=== PATIENT | female | born 1970 ===

== ENCOUNTER 2016-10-19 20:35 | Emergency (ER) | payer MEDICAID ==
[2016-10-19 20:45] VITALS: TEMP 98.2; O2SAT 99
[2016-10-19] MEDS ORDERED: Sodium Chloride 0.9% 1,000 ML IV ONE (21:14)
[2016-10-19] MEDS ORDERED: DiphenhydrAMINE 50 mg/ml Inj IVP STA (21:15)
[2016-10-19] MEDS ORDERED: DiphenhydrAMINE 50 mg/ml Inj ONE (21:28)
[2016-10-19 21:32] LABS: BASO # 0.1 K/uL (0.0-0.2); BASO % 0.5 % (0.0-2.0); EOS # 0.7 K/uL (0.0-0.7); EOS % 6.9 % (0.0-4.0); HEMATOCRIT 37.9 % (34.0-47.0); LYMPH # 3.8 K/uL (1.0-4.3); LYMPH % 39.4 % (20.0-40.0); MEAN CELL VOLUME 81.3 fL (81.0-99.0); MEAN CORPUSCULAR HEMOGLOBIN 26.3 pg (27.0-31.0); MEAN CORPUSCULAR HGB CONC 32.3 g/dL (33.0-37.0); MEAN PLATELET VOLUME 8.3 fL (7.2-11.7); MONO # 0.6 K/uL (0.0-0.8); MONO % 6.6 % (0.0-10.0); RED CELL DISTRIBUTION WIDTH 13.4 % (11.5-14.5); WHITE BLOOD COUNT 9.7 K/uL (4.8-10.8)
--- NOTE | 2016-10-19 21:36 | C.PDOC ---
History Of Present Illness 45 y/o female presents to the ED with complains of frontal headache for the past 2-3 days. Pain is nonradiating. Patient 2 fiorcet without relief. Pt has history of migraine headaches, current symptoms are similar to previous migraines. Pt denies trauma, fever, numbness, weakness, vision changes or any other complaints. Time Seen by Provider: 10/19/16 21:04 Chief Complaint (Nursing): Headache History Per: Patient History/Exam Limitations: no limitations Onset/Duration Of Symptoms: Days Current Symptoms Are (Timing): Still Present Severity: Moderate Quality: "Pain" Preceeding Symptoms: Known Migraine Symptoms Associated Symptoms: denies: Blurred Vision, Vomiting, Extremity Weakness Recent travel outside of the [place]: No Past Medical History Reviewed: Historical Data, Nursing Documentation, Vital Signs Vital Signs: Last Vital Signs Temp 98.2 F 10/19/16 20:41 Pulse 74 10/19/16 23:11 Resp 20 10/19/16 23:11 BP 112/68 10/19/16 23:11 Pulse Ox 99 10/19/16 22:52 - Medical History PMH: HTN, Hypercholesterolemia, Migraine Surgical History: No Surg Hx Family History: States: No Known Family Hx - Social History Hx Tobacco Use: Yes Hx Alcohol Use: No Hx Substance Use: No - Immunization History Hx Tetanus Toxoid Vaccination: No Hx Influenza Vaccination: Yes Hx Pneumococcal Vaccination: Yes Review Of Systems Except As Marked, All Systems Reviewed And Found Negative. Constitutional: Negative for: Fever Eyes: Negative for: Vision Change Gastrointestinal: Negative for: Vomiting Neurological: Positive for: Headache. Negative for: Weakness, Numbness Physical Exam - Physical Exam Appears: Non-toxic, No Acute Distress Skin: Warm, Dry, No Rash Head: Atraumatic, Normacephalic, No Tenderness (no sinus tenderness, no temporal artery tenderness) Eye(s): bilateral: Normal Inspection, PERRL, EOMI Ear(s): Bilateral: Normal Oral Mucosa: Moist Throat: No Erythema, No Exudate Neck: Normal ROM, No Midline Cervical Tenderness, No Paracervical Tenderness, Supple Lymphatic: Normal Exam Chest: Symmetrical, No Tenderness Cardiovascular: Rhythm Regular, No Friction Rub, No Murmur Respiratory: Normal Breath Sounds, No Rales, No Rhonchi, No Wheezing Gastrointestinal/Abdominal: Bowel Sounds (active), Soft, No Tenderness Back: Normal Inspection, No CVA Tenderness Extremity: Normal ROM, No Swelling Extremity: Bilateral: Atraumatic Neurological/Psych: Oriented x3, Normal Speech, Normal Cognition, Normal Motor, Normal Sensation Gait: Steady ED Course And Treatment - Laboratory Results Result Diagrams: 10/19/16 21:27 10/19/16 21:27 O2 Sat by Pulse Oximetry: 99 (on room air) Pulse Ox Interpretation: Normal Progress Note: Plan: labs, benadryl, reglan, toradol, IV fluids Medical Decision Making Medical Decision Making: Labs are normal. On re-exam, the patient reports improvement of symptoms. Abdomen is soft, non-tender and tolerating PO well. Lungs are CTA, heart is RRR. Follow up with the medical doctor within 1-2 days without fail. Return if worsened. s Disposition - Disposition Referrals: Kenny Mays [Staff Provider] - Disposition: HOME/ ROUTINE Disposition Time: 22:50 Condition: GOOD Additional Instructions: Follow up with the medical doctor within 1-2 days without fail. Return if worsened. s Prescriptions: Naproxen [Naprosyn] 500 mg PO BID #20 tab Metoclopramide [Reglan] 1 tab PO TID PRN #25 tab PRN Reason: Nausea/Vomiting Instructions: Migraine Headache (ED) Print Language: HUNGARIAN - Clinical Impression Clinical Impression: Migraine - PA / HOSPITAL MEDICINE DIRECTOR / Resident Statement MD/DO has reviewed & agrees with the documentation as recorded. - Scribe Statement The provider has reviewed the documentation as recorded by the Vic Bowers All medical record entries made by the Vic were at my direction and personally dictated by me. I have reviewed the chart and agree that the record accurately reflects my personal performance of the history, physical exam, medical decision making, and the department course for this patient. I have also personally directed, reviewed, and agree with the discharge instructions and disposition.
[2016-10-19 21:38] LABS: CHLORIDE 101 mmol/L (98-107); SODIUM 141 mmol/L (132-148)
[2016-10-19 21:39] LABS: POTASSIUM 4.1 mmol/L (3.6-5.2)
[2016-10-19 21:41] LABS: ALB/GLOB RATIO 1.4 (1.0-2.1); ALKALINE PHOSPHATASE 59 U/L (38-126); ALT/SGPT 44 U/L (9-52); AST/SGOT 30 U/L (14-36); BILIRUBIN,TOTAL 0.2 mg/dL (0.2-1.3); BLOOD UREA NITROGEN 10 mg/dL (7-17); CARBON DIOXIDE 27 mmol/L (22-30); GFR AFRICAN-AMERICAN > 60; GLUCOSE,RANDOM 121 mg/dL (65-105); TOTAL PROTEIN 7.3 g/dL (6.3-8.3)
[2016-10-19 23:12] VITALS: BP 112/68; PULSE 74; RESP 20
== END 2016-10-19 23:11 | disposition home or self-care (01) ==
LOC: C.ER 20:35
DX: G43.909 Migraine, unspecified, not intractable, without status migrainosus (principal); I10 Essential (primary) hypertension; E78.00 Pure hypercholesterolemia, unspecified; Z72.0 Tobacco use
CPT/HCPCS: 80053; 82009; 85025; 96374; 96375; 99284; J1200; J1885; J2765; J7040

== ENCOUNTER 2016-11-11 09:23 | Emergency (ER) | payer MEDICAID ==
[2016-11-11 09:36] VITALS: BMI 37.3
[2016-11-11 09:42] VITALS: RESP 18; TEMP 97.7
[2016-11-11] MEDS ORDERED: Sodium Chloride 0.9% 1,000 ML IV ONE (09:49)
--- NOTE | 2016-11-11 10:45 | C.PDOC ---
History Of Present Illness A 45 year old female with a Hx of migraines, presents to the ER c/o headache to the anterior forehead since last night. Patient notes the pain as 10/10 that is non-radiating. Patient notes taking Fioricet with no relief. Patient notes nausea and photophobia. positive visual changes, vomiting, fever, chills, LOC. Time Seen by Provider: 11/11/16 09:53 Chief Complaint (Nursing): Headache History Per: Patient History/Exam Limitations: no limitations Onset/Duration Of Symptoms: Intermittent Episodes Current Symptoms Are (Timing): Still Present Severity: Severe Pain Scale Rating Of: 10 Associated Symptoms: Nausea. denies: Photophobia, Blurred Vision, Vomiting Additional History Per: Patient Past Medical History Reviewed: Historical Data, Nursing Documentation, Vital Signs Vital Signs: Last Vital Signs Temp 97.7 F 11/11/16 09:37 Pulse 59 L 11/11/16 11:19 Resp 18 11/11/16 11:19 BP 117/72 11/11/16 11:19 Pulse Ox 97 11/11/16 11:59 - Medical History PMH: HTN, Hypercholesterolemia, Migraine Family History: States: Unknown Family Hx - Social History Hx Tobacco Use: Yes Hx Alcohol Use: No Hx Substance Use: No - Immunization History Hx Tetanus Toxoid Vaccination: No Hx Influenza Vaccination: Yes Hx Pneumococcal Vaccination: Yes Review Of Systems Except As Marked, All Systems Reviewed And Found Negative. Constitutional: Negative for: Fever, Chills Eyes: Negative for: Vision Change Gastrointestinal: Negative for: Vomiting Neurological: Positive for: Headache (Interior of the forehead. Not worst in life). Negative for: Other (LOC) Physical Exam - Physical Exam Appears: Non-toxic, In Acute Distress (Writhing around in pain) Skin: Warm, Dry Head: Atraumatic, Normacephalic Eye(s): bilateral: Normal Inspection, PERRL, EOMI Cardiovascular: Rhythm Regular, No Murmur Respiratory: Normal Breath Sounds, No Rales, No Rhonchi, No Wheezing Neurological/Psych: Oriented x3, Normal Speech, Normal Cognition, No Other (No focal deficit) ED Course And Treatment O2 Sat by Pulse Oximetry: 97 (RA) Pulse Ox Interpretation: Normal Medical Decision Making Medical Decision Making: Impression: A 45 y/o c/o TRAN since last night Plans: -Toradol -Reglan -IV fluids -Reassess and disposition Disposition Counseled Patient/Family Regarding: Diagnosis, Need For Followup - Disposition Referrals: Kenny Mays [Primary Care Provider] - Disposition: HOME/ ROUTINE Disposition Time: 11:56 Condition: IMPROVED Instructions: Migraine Headache (ED) Forms: General Discharge Instructions, Work Excuse - POA Present On Arrival: None - Clinical Impression Clinical Impression: Headache, Migraine, Migraine - Scribe Statement The provider has reviewed the documentation as recorded by the Scribsourav vaughn All medical record entries made by the Robertibe were at my direction and personally dictated by me. I have reviewed the chart and agree that the record accurately reflects my personal performance of the history, physical exam, medical decision making, and the department course for this patient. I have also personally directed, reviewed, and agree with the discharge instructions and disposition.
[2016-11-11 11:20] VITALS: BP 117/72; PULSE 59
[2016-11-11 11:57] VITALS: O2SAT 97
== END 2016-11-11 12:17 | disposition home or self-care (01) ==
LOC: C.ER 09:23 → SUPCPDRO 09:23 → C.ER 12:17
DX: R51 Headache (principal); G43.909 Migraine, unspecified, not intractable, without status migrainosus; I10 Essential (primary) hypertension; E78.00 Pure hypercholesterolemia, unspecified
CPT/HCPCS: 96361; 96374; 96375; 99284; J1885; J2765; J7040

== ENCOUNTER 2016-12-16 04:47 | Emergency (ER) | payer MEDICAID ==
[2016-12-16 04:47] VITALS: BMI 37.3
--- NOTE | 2016-12-16 06:09 | C.PDOC ---
History Of Present Illness Patient is a 46 year old female who presents to the ER with a complaint of a fever, body aches and mild intermittent headache since last night. Patient denies worse headache of life, dizziness, neck pain, drooling, sore throat, cough, CP, SOB, wheezing, abdominal pain, nausea, vomiting or UTI symptoms. Denies recent travel or sick contact. Ambulate to ED for evaluation, not in any apparent distress. Time Seen by Provider: 12/16/16 05:00 Chief Complaint (Nursing): Fever History Per: Patient History/Exam Limitations: no limitations Onset/Duration Of Symptoms: Days (Last night) Current Symptoms Are (Timing): Still Present Location Of Pain: Diffuse Myalgias, Headache Sick Contacts (Context): None Associated Symptoms: Fever, Myalgias. denies: Sore Throat, Cough, Nausea, Vomiting, Other (+ for headache - for dizziness, UTI symptoms, abdominal pain) Recent travel outside of the [place]: No Past Medical History Reviewed: Historical Data, Nursing Documentation, Vital Signs Vital Signs: Last Vital Signs Temp 98.4 F 12/16/16 07:06 Pulse 98 H 12/16/16 07:06 Resp 18 12/16/16 07:06 BP 104/68 12/16/16 07:06 Pulse Ox 97 12/16/16 07:06 - Medical History PMH: HTN, Hypercholesterolemia, Migraine Surgical History: No Surg Hx Family History: States: Unknown Family Hx - Social History Hx Tobacco Use: Yes Hx Alcohol Use: No Hx Substance Use: No - Immunization History Hx Tetanus Toxoid Vaccination: No Hx Influenza Vaccination: Yes Hx Pneumococcal Vaccination: Yes Review Of Systems Except As Marked, All Systems Reviewed And Found Negative. Constitutional: Positive for: Fever ENT: Negative for: Throat Pain Respiratory: Negative for: Cough Gastrointestinal: Negative for: Nausea, Vomiting, Abdominal Pain Genitourinary: Negative for: Dysuria, Hematuria Musculoskeletal: Positive for: Other (Body aches) Neurological: Positive for: Headache. Negative for: Dizziness Physical Exam - Physical Exam Appears: Non-toxic, No Acute Distress Skin: Normal Color, Warm, Dry, No Rash Eye(s): bilateral: PERRL Ear(s): Bilateral: Normal Nose: No Discharge Oral Mucosa: Moist, No Drooling Throat: Erythema (mild pharyngeal erythema), No Exudate, No Drooling Neck: Supple Chest: Symmetrical, No Tenderness Cardiovascular: Rhythm Regular, No Murmur Respiratory: No Rales, No Rhonchi, No Wheezing Gastrointestinal/Abdominal: Soft, No Tenderness, No Distention, No Guarding Back: No CVA Tenderness Extremity: No Pedal Edema Neurological/Psych: Oriented x3, Normal Speech, Normal Cognition ED Course And Treatment O2 Sat by Pulse Oximetry: 98 (Room air) Pulse Ox Interpretation: Normal Progress Note: CXR, rapid strep and urinalysis ordered. Tylenol administered. ON RE-EAVLUATION, PT IS AWAKE, NOT N ANY APPARENT DISTRESS. tOLERATE PO WELL IN ED. NON-TOXIC, HEMODYNAMICALY STABLE. PULSEOX 98% rA. ENT: no acute findings. Neck: (-) meningeal sign. LUngs: CTA B/L, BS equal B/L. Abd: bengn. Back: (-) CVA tenderness. Rapid strep (+). CXR- normal study. UA- no rmal study. Abx given. Pt advised and ref. to F/u with PMD In 2-3 days for re- eavl. return if any new changes. Disposition Counseled Patient/Family Regarding: Studies Performed, Diagnosis, Need For Followup, Rx Given - Disposition Referrals: Kenny Mays [Staff Provider] - Disposition: HOME/ ROUTINE Disposition Time: 06:46 Condition: STABLE Additional Instructions: Encourage fluids Take medication as prescribed Follow up with PMD in 2-3 days for re-evaluation. Return to ED if any worsening or new changes. Prescriptions: Amoxicillin/Clavulanate [Augmentin 875 MG-125 MG] 1 tab PO BID #14 tab Ibuprofen [Motrin Tab] 600 mg PO Q6 #20 tab Instructions: Strep Throat (ED) Forms: Work Excuse Print Language: SOUTH SUDANESE - Clinical Impression Clinical Impression: Strep pharyngitis - Scribe Statement The provider has reviewed the documentation as recorded by the Vic Gordillo All medical record entries made by the Robertibsourav were at my direction and personally dictated by me. I have reviewed the chart and agree that the record accurately reflects my personal performance of the history, physical exam, medical decision making, and the department course for this patient. I have also personally directed, reviewed, and agree with the discharge instructions and disposition.
[2016-12-16 06:23] LABS: RBC URINE 2 /hpf (0-3); URINE BILIRUBIN NEGATIVE (NEGATIVE); URINE BLOOD NEGATIVE (NEGATIVE); URINE COLOR Yellow (YELLOW); URINE GLUCOSE (UA) NORMAL (Normal); URINE KETONE NEGATIVE (NEGATIVE); URINE LEUKOCYTE ESTERASE NEG Leu/uL (Negative); URINE PROTEIN NEGATIVE (NEGATIVE); URINE UROBILINOGEN NORMAL mg/dL (0.2-1.0); WBC URINE 5 /hpf (0-5)
[2016-12-16] MEDS ORDERED: Amoxicillin-Clav 875-125 mg Tab PO STA (06:43)
[2016-12-16] MEDS ORDERED: Amoxicillin-Clav 875-125 mg Tab PO ONE (06:54)
[2016-12-16 07:07] VITALS: BP 104/68; PULSE 98; RESP 18; TEMP 98.4
--- NOTE | 2016-12-16 09:00 | RAD ---
HISTORY: Cough COMPARISON: No prior. TECHNIQUE: Chest PA and lateral FINDINGS: LUNGS: Mild venous congestion. PLEURA: No significant pleural effusion identified. No pneumothorax apparent. CARDIOVASCULAR: Normal. OSSEOUS STRUCTURES: No significant abnormalities. VISUALIZED UPPER ABDOMEN: Normal. OTHER FINDINGS: None. IMPRESSION: Mild venous congestion.
[2016-12-17 15:16] VITALS: O2SAT 98
== END 2016-12-16 07:07 | disposition home or self-care (01) ==
LOC: C.ER 04:47
DX: J02.0 Streptococcal pharyngitis (principal); B95.0 Streptococcus, group A, as the cause of diseases classified elsewhere; Z72.0 Tobacco use